=== PATIENT | male | born 1975 | race Caucasian/White ===

== ENCOUNTER 2020-03-27 02:16 | Emergency (ER) | payer OTHER, SELFPAY ==
[2020-03-27 02:31] VITALS: BP 167/103; PULSE 93; RESP 16; TEMP 36.8; O2SAT 100; BMI 40.7
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
[2020-03-27 02:52] VITALS: BP 159/75; PULSE 75; RESP 21; TEMP 36.7; O2SAT 98
== END 2020-03-27 02:55 | disposition home or self-care (01) ==
PROVIDERS: Emergency Provider Emergency Medicine; PCP Family Medicine
DX: S01.111A Laceration without foreign body of right eyelid and periocular area, initial encounter (principal); W22.8XXA Striking against or struck by other objects, initial encounter; Y92.69 Other specified industrial and construction area as the place of occurrence of the external cause; Y99.0 Civilian activity done for income or pay
CPT/HCPCS: 12001; 99282

== ENCOUNTER 2021-07-23 18:44 | Emergency (ER) | payer BC, SELFPAY ==
[2021-07-23 18:45] VITALS: PULSE 88; RESP 16; TEMP 37.1; O2SAT 98; BMI 39.9
--- NOTE | 2021-07-23 18:48 | CT_ITS ---
PROCEDURE INFORMATION: Exam: CT Abdomen And Pelvis With Contrast Exam date and time: 07/23/2021 6:57 PM Age: 45 years old Clinical indication: Abdominal pain; Generalized; Prior surgery; Surgery date: 6+ months; Surgery type: Gallbladder; Additional info: Rlq pain-- for 1 week getting worse- TECHNIQUE: Imaging protocol: Computed tomography of the abdomen and pelvis with contrast. Total images: 343 Radiation optimization: All CT scans at this facility use at least one of these dose optimization techniques: automated exposure control; mA and/or kV adjustment per patient size (includes targeted exams where dose is matched to clinical indication); or iterative reconstruction. Contrast material: ISOVUE; Contrast volume: 75 ml; Contrast route: IV; COMPARISON: No relevant prior studies available. FINDINGS: Lungs: Granulomatous calcifications in the anterior right lung base. Bandlike right basilar airspace disease favoring compressive atelectasis. Heart: Heart size normal. Mediastinal space: The visualized distal esophagus is largely contracted without gross abnormality. Diaphragm: Elevated right hemidiaphragm, age indeterminate. Liver: Normal contour. No mass lesions. No intrahepatic biliary ductal dilatation. Gallbladder and bile ducts: Prior cholecystectomy with no significant dilatation of the common bile duct. Pancreas: Normal. No inflammatory changes or ductal dilation. Spleen: Splenomegaly measuring 14.7 cm maximum dimension. Granulomatous calcification in the spleen. Adrenal glands: Normal. No adrenal mass. Kidneys and ureters: Mild bilateral symmetrical perinephric stranding which is nonspecific and age indeterminate. This may relate to perirenal scarring or edema. Clinical/laboratory correlation is recommended to exclude evidence of medical renal disease. No hydronephrosis or hydroureter. There are 3 nonobstructive right renal stones measuring 1-3 mm in size. No left-sided renal stones. No ureteral stones. Stomach and bowel: The stomach is unremarkable. The small bowel is nondilated with no gross abnormality. No acute colonic abnormalities. Appendix: The appendix is normal in caliber and demonstrates no evidence of appendicitis. Intraperitoneal space: No free fluid or air. Vasculature: No acute process. No abdominal aortic aneurysm. Lymph nodes: No adenopathy. Urinary bladder: Unremarkable as visualized. Reproductive: Borderline mild prostate enlargement. Bones/joints: No acute osseous abnormalities. Moderate posterior disc space narrowing L5-S1. Soft tissues: Unremarkable. IMPRESSION: 1. No definite acute findings. 2. Small nonobstructive right renal stones. No ureteral stones or hydronephrosis. 3. The appendix is normal. No evidence of bowel obstruction, perforation, or abscess. 4. Elevated right hemidiaphragm, age indeterminate, with adjacent compressive atelectasis in the right lung base. 5. Mild bilateral symmetrical perinephric stranding which is nonspecific and age indeterminate. This may relate to perirenal scarring or edema. Clinical/laboratory correlation is recommended to exclude evidence of medical renal disease. 6. Mild splenomegaly. 7. Additional nonemergent findings detailed above.
--- NOTE | 2021-07-23 19:01 | PC.NURSE ---
PT to rad
[2021-07-23 19:14] LABS: Microscopic, Urine URINE MICROSCOPIC (MICROSCOPIC)
--- NOTE | 2021-07-23 19:15 | HMH.EDABDPAI ---
ED Disposition Clinical Impression: Abdominal pain in male Disposition: Home, Self-Care Condition on Discharge: Good Instructions: DI for Acute Abdominal Pain Prescriptions: Hydrocod/Acet 5/325 mg [[place] 5/325mg tablet] 1 tab PO Q6HP PRN #7 tab PRN Reason: Moderate Pain Transmission Status: Received by [facility] Famotidine [Pepcid 20mg Tablet] 20 mg PO DAILY #15 tab Transmission Status: Pending to [facility] Referrals: Moe Mir [Primary Care Provider] - - Critical Care Critical Care Time: No Attestation: On 07/23/21, the high probability of a clinically significant, sudden or life threatening deterioration of the following system(s) required my full and direct attention, intervention and personal management. The time I documented below is in addition to time spent performing reported procedures but includes the following listed in this critical care notation. Medical Decision Making - Medical Records Medical records reviewed: Yes: I reviewed the patient's medical records. - Js Inquiry Pt receiving controlled substance: No Vital Signs: 07/23/21 18:45 Temperature 98.8 F Temperature Source Oral Pulse Rate [Right] 88 Respiratory Rate 16 02 Sat by Pulse Oximetry 98 Oxygen Delivery Method Room Air - Lab Data Lab Results 07/23/21 18:49: WBC 7.3, RBC 5.75, Hgb 18.9 H, Hct 57.4 H, MCV 99.8 H, MCH 32.9 H, MCHC 32.9, RDW 14.3, Plt Count 351, MPV 8.6, Neut % (Auto) 57.4, Lymph % (Auto) 24.7, [place] % (Auto) 13.0 H, Eos % (Auto) 3.0, Baso % (Auto) 1.9, Neut # (Auto) 4.2, Lymph # (Auto) 1.8, [place] # (Auto) 1.0, Eos # (Auto) 0.2, Baso # (Auto) 0.1 07/23/21 18:49: Sodium 136, Potassium 3.6, Chloride 99, Carbon Dioxide 27, Anion Gap 13.6, BUN 8 L, Creatinine 0.90, Estimated Creat Clear 158, Estimated GFR 91, Est GFR ( Amer) 110, Glucose 115 H, Calcium 8.9, Total Bilirubin 1.3, AST 87 H, ALT 116 H, Alkaline Phosphatase 48, Total Protein 6.6, Albumin 3.9, Globulin 2.7, Albumin/Globulin Ratio 1.4 07/23/21 18:49: Troponin I < 0.01, Lipase 82 07/23/21 19:10: Urine Color Yellow, Urine Appearance Clear, Urine pH 7.5, Ur Specific [place] 1.010, Urine Protein Negative, Urine Glucose (UA) Negative, Urine Ketones Negative, Urine Blood Trace-l, Urine Nitrate Negative, Urine Bilirubin Negative, Urine Urobilinogen 2.0, Ur Leukocyte Esterase Negative Result diagrams: 07/23/21 18:49 07/23/21 18:49 Orders (Tests/Meds): ED MEDICATIONS Generic Name Dose Route Start Last Admin Trade Name Freq PRN Reason Stop Dose Admin Lactated Ringer's 1,000 mls @ 999 mls/hr 07/23/21 19:00 07/23/21 19:03 Lactated Ringer's 1000 Ml Bag IV 07/23/21 20:00 999 mls/hr .Q1H1M BAIRON Administration Sodium Chloride 8 ml 07/23/21 18:48 Sodium Chloride 0.9% 10ml Vial IV 08/22/21 18:47 NEEDED PRN dilute pepcid Discontinued Medications Generic Name Dose Route Start Last Admin Trade Name Freq PRN Reason Stop Dose Admin Famotidine 20 mg 07/23/21 18:48 07/23/21 19:03 Famotidine 20mg/2ml Vial IV 07/23/21 18:49 20 mg ONCE ONE Administration Iopamidol 75 ml 07/23/21 19:04 07/23/21 19:05 Iopamidol-370 (76%);100ml Bottle IV 07/23/21 19:05 75 ml ONCE ONE Administration Ketorolac Tromethamine 30 mg 07/23/21 18:48 07/23/21 19:03 Ketorolac 30mg/Ml Vial IV 07/23/21 18:49 30 mg ONCE ONE Administration Ondansetron HCl 4 mg 07/23/21 18:48 07/23/21 19:04 Ondansetron 4mg/2ml Vial IV 07/23/21 18:49 4 mg ONCE ONE Administration Sodium Chloride 10 ml 07/23/21 19:04 07/23/21 19:05 Sodium Chloride 0.9% 10ml Syr (Rad Only) IV 07/23/21 19:05 10 ml ONCE ONE Administration ORDERS Category Date Time Status Troponin I Q3H Lab 07/23/21 22:00 Ordered Troponin I Q3H Lab 07/24/21 01:00 Ordered - CT Data CT Scan: Abdomen, Pelvis Time Received: 19:[address] Reviewed: Yes: I have reviewed the patient's CT results, I have viewed the radiologist's i
[2021-07-23 19:17] LABS: Basophils # 0.1 K/mm3 (0-0.2); Basophils % 1.9 % (0.1-2.0); Eosinophils # 0.2 K/mm3 (0.0-0.4); Hematocrit 57.4 % (42.0-52.0); Lymphocytes # 1.8 K/mm3 (0.7-4.5); Lymphocytes % 24.7 % (10-50); Mean Corpuscular HGB Conc 32.9 g/dL (31.8-35.4); Mean Corpuscular Hemoglobin 32.9 pg (27.0-31.2); Mean Corpuscular Volume 99.8 fl (80-94); Mean Platelet Volume 8.6 fl (7.4-10.4); Neutrophils # 4.2 K/mm3 (1.8-7.8); Neutrophils % 57.4 % (37.0-80.0); Platelet Count 351 K/mm3 (142-424); Red Blood Count 5.75 M/mm3 (4.60-6.20); Red Cell Distribution Width 14.3 % (11.5-17.5); White Blood Count 7.3 K/mm3 (4.8-10.8)
[2021-07-23 19:23] LABS: Hemoglobin 18.9 g/dL (14.1-18.0)
--- NOTE | 2021-07-23 19:25 | PC.NURSE ---
Rechecked pt's condition, report the pain is a little better . Now report pain is 5/10 on [employer]. notified.
[2021-07-23 19:27] LABS: Alanine Aminotransferase 116 U/L (12-78); Albumin Level 3.9 g/dl (3.5-5.0); Albumin/Globulin Ratio 1.4 (1.1-1.8); Alkaline Phosphatase 48 U/L (38-126); Anion Gap 13.6 mEq/L (5-15); Aspartate Amino Transferase 87 U/L (17-59); Bilirubin,Total 1.3 mg/dl (0.2-1.3); Blood Urea Nitrogen 8 mg/dl (9-20); Calcium 8.9 mg/dl (8.4-10.2); Carbon Dioxide 27 mmol/L (22.0-30.0); Chloride 99 mmol/L (98-107); Creatinine Clearance Estimated 158 mL/min (50-200); Estimated Glomerular Filt Rate 91 ml/min (>60); GFR (African American) 110 ML/MIN (>60); Globulin 2.7 g/dL (1.3-3.2); Glucose 115 mg/dl (74-100); Lipase 82 U/L (23-300); Potassium 3.6 mmoL/L (3.5-5.1); Sodium 136 mmol/L (136-145); Total Protein,Serum 6.6 g/dl (6.3-8.2)
[2021-07-23 19:42] LABS: Appearance,Urine CLEAR (Clear); Bilirubin,Urine Negative (Negative); Blood, Urine TRACE-L (Negative); Color,Urine YELLOW (Yellow); Glucose,Urine (UA) Negative (Negative); Ketones,Urine Negative (Negative); Leukocyte Esterase,Urine Negative (Negative); Nitrate,Urine Negative (Negative); PH,Urine 7.5 (5.0-8.5); Protein,Urine Negative (Negative)
[2021-07-23 19:43] LABS: Troponin I < 0.01 ng/ml (0.00-0.034)
--- NOTE | 2021-07-23 19:47 | PC.NURSE ---
updated pt on lab results
[2021-07-23 19:49] LABS: RBC,Urine Occasional #/hpf (0-3); WBC,Urine Occasional #/hpf (0-3)
[2021-07-23 19:53] VITALS: BP 142/78; PULSE 80; RESP 18; TEMP 36.7; O2SAT 98
== END 2021-07-23 20:02 | disposition home or self-care (01) ==
PROVIDERS: Emergency Provider Emergency Medicine; PCP Family Medicine
DX: N20.1 Calculus of ureter (principal)
CPT/HCPCS: 74177; 80053; 81001; 83690; 84484; 85025; 96365; 96375; 99284; J2405; Q9967

== ENCOUNTER 2021-08-25 18:40 | Emergency (ER) | payer BC, SELFPAY ==
[2021-08-25 18:47] VITALS: BP 129/69; PULSE 84; RESP 18; TEMP 36.8; O2SAT 95; BMI 39.9
--- NOTE | 2021-08-25 18:54 | ECG_ITS ---
APPROVED REPORT Exam: Resting ECG HR:85 bpm ECG Measurements Heart Rate 85 AXES GA 160 P 59 QRSd 104 QRS 34 QT 354 T 30 QTc 396 Conclusion SINUS RHYTHM NONSPECIFIC T-WAVE ABNORMALITY BORDERLINE ECG UNCONFIRMED REPORT Electronically signed by : Tico Langston MD 08/26/2021 21:31:04
[2021-08-25 19:00] VITALS: BP 127/56; PULSE 85; RESP 23; O2SAT 95
[2021-08-25 19:09] LABS: Basophils # 0.1 K/mm3 (0-0.2); Basophils % 1.2 % (0.1-2.0); Eosinophils # 0.7 K/mm3 (0.0-0.4); Eosinophils % 6.5 % (0.1-12.0); Hematocrit 49.6 % (42.0-52.0); Hemoglobin 16.7 g/dL (14.1-18.0); Lymphocytes # 1.7 K/mm3 (0.7-4.5); Lymphocytes % 16.7 % (10-50); Mean Corpuscular HGB Conc 33.6 g/dL (31.8-35.4); Mean Corpuscular Hemoglobin 32.3 pg (27.0-31.2); Mean Corpuscular Volume 96.1 fl (80-94); Mean Platelet Volume 8.7 fl (7.4-10.4); Monocytes % 10.2 % (1.7-9.3); Neutrophils # 6.7 K/mm3 (1.8-7.8); Neutrophils % 65.5 % (37.0-80.0); Platelet Count 293 K/mm3 (142-424); Red Blood Count 5.17 M/mm3 (4.60-6.20); Red Cell Distribution Width 15.1 % (11.5-17.5); White Blood Count 10.2 K/mm3 (4.8-10.8)
[2021-08-25 19:12] LABS: Alanine Aminotransferase 94 U/L (12-78); Albumin Level 3.6 g/dl (3.5-5.0); Albumin/Globulin Ratio 1.5 (1.1-1.8); Alkaline Phosphatase 69 U/L (38-126); Amylase 213 U/L (30-110); Anion Gap 8.4 mEq/L (5-15); Aspartate Amino Transferase 62 U/L (17-59); Bilirubin,Total 0.7 mg/dl (0.2-1.3); Blood Urea Nitrogen 14 mg/dl (9-20); Calcium 8.6 mg/dl (8.4-10.2); Carbon Dioxide 31 mmol/L (22.0-30.0); Chloride 101 mmol/L (98-107); Creatinine Clearance Estimated 156 mL/min (50-200); Estimated Glomerular Filt Rate 90 ml/min (>60); GFR (African American) 109 ML/MIN (>60); Globulin 2.4 g/dL (1.3-3.2); Glucose 110 mg/dl (74-100); Lipase 49 U/L (23-300); Potassium 3.4 mmoL/L (3.5-5.1); Sodium 137 mmol/L (136-145)
[2021-08-25 19:24] LABS: Troponin I < 0.01 ng/ml (0.00-0.034)
--- NOTE | 2021-08-25 19:25 | CT_ITS ---
PROCEDURE INFORMATION: Exam: CT Abdomen And Pelvis Without Contrast Exam date and time: 08/25/2021 7:33 PM Age: 46 years old Clinical indication: Abdominal pain; Epigastric; Prior surgery; Surgery date: 6+ months; Surgery type: Gb; Additional info: Abd pain TECHNIQUE: Imaging protocol: Computed tomography of the abdomen and pelvis without contrast. Radiation optimization: All CT scans at this facility use at least one of these dose optimization techniques: automated exposure control; mA and/or kV adjustment per patient size (includes targeted exams where dose is matched to clinical indication); or iterative reconstruction. COMPARISON: CT ABDOMEN PELVIS W CON 07/23/2021 6:57 PM FINDINGS: Lungs: Elevation of the right hemidiaphragm with atelectasis at the right lung base which is stable from prior exam. Liver: Parenchymal enhancement is not evaluated without contrast. No hepatomegaly. Gallbladder and bile ducts: Status post cholecystectomy. Pancreas: Parenchymal enhancement is not evaluated without contrast. No ductal dilation. Spleen: There are multiple splenic calcifications likely on the basis of prior granulomatous exposure. Adrenal glands: No mass. Kidneys and ureters: Punctate nonobstructing renal calculi without hydronephrosis. Stomach and bowel: Moderate to large stool burden within the colon. No bowel obstruction. Appendix: No evidence of appendicitis. Intraperitoneal space: No free air. No significant fluid collection. Vasculature: Limited evaluation without contrast. No abdominal aortic aneurysm. Lymph nodes: No enlarged lymph nodes. Urinary bladder: No acute abnormality. Reproductive: No acute abnormality. Bones/joints: No acute fracture. Soft tissues: Limited evaluation without contrast. No significant soft tissue swelling. IMPRESSION: 1. Elevation of the right hemidiaphragm with atelectasis at the right lung base which is stable from prior exam. 2. There are multiple splenic calcifications likely on the basis of prior granulomatous exposure. 3. Punctate nonobstructing renal calculi without hydronephrosis. 4. Moderate to large stool burden within the colon.
[2021-08-25 19:30] VITALS: BP 117/53; PULSE 90; RESP 21; O2SAT 97
--- NOTE | 2021-08-25 19:55 | HMH.EDNVD ---
ED Disposition Clinical Impression: Sphincter of Oddi dysfunction Disposition: Home, Self-Care Condition on Discharge: Good Instructions: DI for Acute Abdominal Pain Additional Instructions: use meds and see pcp and gi Prescriptions: Dicyclomine HCl [Bentyl 10mg capsule] 10 mg PO TID #30 cap Transmission Status: Pending to [id number] Referrals: Moe Mir [Primary Care Provider] - - Critical Care Critical Care Time: No Attestation: On 08/25/21, the high probability of a clinically significant, sudden or life threatening deterioration of the following system(s) required my full and direct attention, intervention and personal management. The time I documented below is in addition to time spent performing reported procedures but includes the following listed in this critical care notation. Medical Decision Making - Medical Records Medical records reviewed: Yes: I reviewed the patient's medical records. - Js Inquiry Pt receiving controlled substance: No Vital Signs: 08/25/21 18:47 08/25/21 19:00 08/25/21 19:30 Temperature 98.3 F Temperature Source Oral Pulse Rate 85 90 Pulse Rate [Right Radial] 84 Respiratory Rate 18 23 21 Blood Pressure 127/56 L 117/53 L Blood Pressure [Right Arm] 129/69 Blood Pressure Mean 79 74 Blood Pressure Mean [Right Arm] 89 Blood Pressure Source [Right Arm] Automatic Cuff Blood Pressure Position [Right Arm] Sitting 02 Sat by Pulse Oximetry 95 95 97 Oxygen Delivery Method Room Air 08/25/21 20:00 Temperature Temperature Source Pulse Rate 90 Pulse Rate [Right Radial] Respiratory Rate 20 Blood Pressure 139/80 Blood Pressure [Right Arm] Blood Pressure Mean 94 Blood Pressure Mean [Right Arm] Blood Pressure Source [Right Arm] Blood Pressure Position [Right Arm] 02 Sat by Pulse Oximetry 98 Oxygen Delivery Method - Lab Data Lab results reviewed: Yes: I reviewed the patient's lab results. Lab Results 08/25/21 18:45: WBC 10.2, RBC 5.17, Hgb 16.7, Hct 49.6, MCV 96.1 H, MCH 32.3 H, MCHC 33.6, RDW 15.1, Plt Count 293, MPV 8.7, Neut % (Auto) 65.5, Lymph % (Auto) 16.7, [place] % (Auto) 10.2 H, Eos % (Auto) 6.5, Baso % (Auto) 1.2, Neut # (Auto) 6.7, Lymph # (Auto) 1.7, [place] # (Auto) 1.0, Eos # (Auto) 0.7 H, Baso # (Auto) 0.1 08/25/21 18:45: Sodium 137, Potassium 3.4 L, Chloride 101, Carbon Dioxide 31 H, Anion Gap 8.4, BUN 14, Creatinine 0.90, Estimated Creat Clear 156, Estimated GFR 90, Est GFR ( Amer) 109, Glucose 110 H, Calcium 8.6, Total Bilirubin 0.7, AST 62 H, ALT 94 H, Alkaline Phosphatase 69, Troponin I < 0.01, Total Protein 6.0 L, Albumin 3.6, Globulin 2.4, Albumin/Globulin Ratio 1.5, Amylase 213 H, Lipase 49 Result diagrams: 08/25/21 18:45 08/25/21 18:45 Orders (Tests/Meds): ED MEDICATIONS Generic Name Dose Route Start Last Admin Trade Name Freq PRN Reason Stop Dose Admin Sodium Chloride 8 ml 08/25/21 18:57 Sodium Chloride 0.9% 10ml Vial IV 09/24/21 18:56 NEEDED PRN dilute pepcid Sodium Chloride 10 ml 08/25/21 18:57 Sodium Chloride 0.9% 10ml Flush Syringe IV 09/24/21 18:56 NEEDED PRN Maintain IV Site Discontinued Medications Generic Name Dose Route Start Last Admin Trade Name Freq PRN Reason Stop Dose Admin Famotidine 20 mg 08/25/21 18:57 08/25/21 19:02 Famotidine 20mg/2ml Vial IV 08/25/21 18:58 20 mg ONCE ONE Administration Metoclopramide HCl 10 mg 08/25/21 18:57 08/25/21 19:02 Metoclopramide Hcl 10mg/2ml Vial IVP 08/25/21 18:58 10 mg ONCE ONE Administration ORDERS Category Date Time Status Troponin I Q3H Lab 08/25/21 22:00 Ordered Troponin I Q3H Lab 08/26/21 01:00 Ordered - CT Data CT Scan: Abdomen, Pelvis Time Received: 20:[address] Reviewed: Yes: I have viewed the radiologist's interpretation Preliminary Findings: Normal/NAD - ECG Data Tracing #1 Normal Sinus Rhythm: Yes Ischemic changes: non-specific ST-T wave
[2021-08-25 20:00] VITALS: BP 139/80; PULSE 90; RESP 20; O2SAT 98
[2021-08-25 20:30] VITALS: BP 139/80; PULSE 91; RESP 18; TEMP 36.8; O2SAT 98
== END 2021-08-25 20:33 | disposition home or self-care (01) ==
PROVIDERS: Emergency Provider Emergency Medicine; PCP Family Medicine
DX: K92.89 Other specified diseases of the digestive system; Z88.8 Allergy status to other drugs, medicaments and biological substances
CPT/HCPCS: 74176; 80053; 82150; 83690; 84484; 85025; 93005; 96374; 96375; 99284

== ENCOUNTER 2021-10-24 19:25 | Emergency (ER) | payer BC, SELFPAY ==
[2021-10-24 19:31] VITALS: BP 145/81; PULSE 91; RESP 16; TEMP 36.7; O2SAT 100; BMI 39.9
[2021-10-24 20:00] VITALS: BP 136/84; PULSE 94; O2SAT 95
[2021-10-24 20:34] LABS: Chloride 101 mmol/L (98-107); Potassium 3.2 mmoL/L (3.5-5.1); Sodium 139 mmol/L (136-145)
[2021-10-24 20:36] LABS: Alanine Aminotransferase 85 U/L (12-78); Aspartate Amino Transferase 69 U/L (17-59); Blood Urea Nitrogen 6 mg/dl (9-20); Creatinine Clearance Estimated 156 mL/min (50-200); Estimated Glomerular Filt Rate 90 ml/min (>60); GFR (African American) 109 ML/MIN (>60)
[2021-10-24 20:37] LABS: Albumin Level 4.3 g/dl (3.5-5.0); Albumin/Globulin Ratio 1.8 (1.1-1.8); Alkaline Phosphatase 56 U/L (38-126); Anion Gap 9.2 mEq/L (5-15); Bilirubin,Total 1.4 mg/dl (0.2-1.3); Calcium 9.1 mg/dl (8.4-10.2); Carbon Dioxide 32 mmol/L (22.0-30.0); Globulin 2.4 g/dL (1.3-3.2); Glucose 115 mg/dl (74-100); Lactic Acid 1.5 mmol/L (0.7-2.1); Lipase 80 U/L (23-300); Total Protein,Serum 6.7 g/dl (6.3-8.2)
--- NOTE | 2021-10-24 20:46 | ECG_ITS ---
APPROVED REPORT Exam: Resting ECG HR:95 bpm ECG Measurements Heart Rate 95 AXES [place] 177 P 53 QRSd 98 QRS 14 QT 336 T -81 QTc 389 Conclusion SINUS RHYTHM NONSPECIFIC ST & T-WAVE ABNORMALITY seen on prior ecg ABNORMAL ECG UNCONFIRMED REPORT Electronically signed by : Tico Langston MD 10/25/2021 13:51:29
--- NOTE | 2021-10-24 20:48 | HMH.EDGENADL ---
ED Disposition Clinical Impression: Abdominal pain Qualifiers: Abdominal location: epigastric Qualified Code(s): R10.13 - Epigastric pain Disposition: Home, Self-Care Condition on Discharge: Good Instructions: DI for Acute Abdominal Pain Additional Instructions: Take medications as prescribed. Call gastroenterology to set up an appointment for potential ERCP and EGD. Prescriptions: Esomeprazole Magnesium 20 mg PO DAILY #30 cap Transmission Status: Received by [id number] Referrals: Moe Mir [Primary Care Provider] - - Critical Care Critical Care Time: No Attestation: On 10/24/21, the high probability of a clinically significant, sudden or life threatening deterioration of the following system(s) required my full and direct attention, intervention and personal management. The time I documented below is in addition to time spent performing reported procedures but includes the following listed in this critical care notation. Medical Decision Making - Js Inquiry Pt receiving controlled substance: No Vital Signs: 10/24/21 19:31 10/24/21 20:00 10/24/21 21:52 Temperature 98.1 F 98.1 F Temperature Source Oral Oral Pulse Rate 94 H 89 Pulse Rate [Left Radial] 91 H Respiratory Rate 16 16 Blood Pressure 136/84 136/84 Blood Pressure [Right Arm] 145/81 H Blood Pressure Mean [Right Arm] 102 Blood Pressure Source Automatic Cuff Blood Pressure Source [Right Arm] Automatic Cuff Blood Pressure Position Sitting Blood Pressure Position [Right Arm] Sitting 02 Sat by Pulse Oximetry 100 95 Oxygen Delivery Method Room Air Room Air Room Air - Lab Data Lab Results 10/24/21 20:14: WBC 12.0 H, RBC 5.75, Hgb 19.2 H, Hct 58.1 H, MCV 101.1 H, MCH 33.6 H, MCHC 33.3, RDW 14.6, Plt Count 308, MPV 8.6, Neut % (Auto) 78.0, Lymph % (Auto) 12.6, [place] % (Auto) 7.4, Eos % (Auto) 0.9, Baso % (Auto) 1.1, Neut # (Auto) 9.4 H, Lymph # (Auto) 1.5, [place] # (Auto) 0.9, Eos # (Auto) 0.1, Baso # (Auto) 0.1 10/24/21 20:14: Sodium 139, Potassium 3.2 L, Chloride 101, Carbon Dioxide 32 H, Anion Gap 9.2, BUN 6 L, Creatinine 0.90, Estimated Creat Clear 156, Estimated GFR 90, Est GFR ( Amer) 109, Glucose 115 H, Calcium 9.1, Total Bilirubin 1.4 H, AST 69 H, ALT 85 H, Alkaline Phosphatase 56, Troponin I < 0.01, Total Protein 6.7, Albumin 4.3, Globulin 2.4, Albumin/Globulin Ratio 1.8, Lipase 80 10/24/21 20:14: Lactate 1.5 Result diagrams: 10/24/21 20:14 10/24/21 20:14 Orders (Tests/Meds): ED MEDICATIONS Discontinued Medications Generic Name Dose Route Start Last Admin Trade Name Freq PRN Reason Stop Dose Admin Lactated Ringer's 1,000 mls @ 999 mls/hr 10/24/21 20:30 10/24/21 20:24 Lactated Ringer's 1000 Ml Bag IV 10/24/21 21:30 999 mls/hr .Q1H1M BAIRON Administration Ketorolac Tromethamine 15 mg 10/24/21 20:20 10/24/21 20:24 Ketorolac 30mg/Ml Vial IV 10/24/21 20:21 15 mg ONCE ONE Administration Pantoprazole Sodium 40 mg 10/24/21 20:20 10/24/21 20:24 Pantoprazole 40mg Vial IV 10/24/21 20:21 40 mg ONCE ONE Administration Sodium Chloride 10 ml 10/24/21 20:20 10/24/21 20:24 Sodium Chloride 0.9% 10ml Vial IV 11/23/21 20:19 10 ml NEEDED PRN Administration dilute protonix Sodium Chloride 10 ml 10/24/21 20:20 Sodium Chloride 0.9% 10ml Flush Syringe IV 10/25/21 08:21 NEEDED PRN Maintain IV Site - ECG Data Tracing #1 Normal sinus rhythm [address] or T wave changes concerning for acute ischemia. [place], QRS, QT intervals within normal limits. Medical Decision Narrative: This is a 46-year-old male with history of sphincter of Oddi dysfunction, chronic epigastric pain, status post cholecystitis who is presenting with epigastric pain. Patient states that he has been unable to take any of his medications secondary to losing them and a separation with his . On arrival, patient hemodynamically stable, alert, oriented, movin
[2021-10-24 20:50] LABS: Troponin I < 0.01 ng/ml (0.00-0.034)
[2021-10-24 21:02] LABS: Basophils # 0.1 K/mm3 (0-0.2); Basophils % 1.1 % (0.1-2.0); Eosinophils # 0.1 K/mm3 (0.0-0.4); Eosinophils % 0.9 % (0.1-12.0); Hematocrit 58.1 % (42.0-52.0); Lymphocytes # 1.5 K/mm3 (0.7-4.5); Lymphocytes % 12.6 % (10-50); Mean Corpuscular HGB Conc 33.3 g/dL (31.8-35.4); Mean Corpuscular Hemoglobin 33.6 pg (27.0-31.2); Mean Corpuscular Volume 101.1 fl (80-94); Mean Platelet Volume 8.6 fl (7.4-10.4); Monocytes # 0.9 K/mm3 (0.1-1.0); Monocytes % 7.4 % (1.7-9.3); Neutrophils # 9.4 K/mm3 (1.8-7.8); Platelet Count 308 K/mm3 (142-424); Red Blood Count 5.75 M/mm3 (4.60-6.20); Red Cell Distribution Width 14.6 % (11.5-17.5)
[2021-10-24 21:04] LABS: Hemoglobin 19.2 g/dL (14.1-18.0)
[2021-10-24 21:52] VITALS: BP 136/84; PULSE 89; RESP 16; TEMP 36.7; O2SAT 99
== END 2021-10-24 22:00 | disposition home or self-care (01) ==
PROVIDERS: Emergency Provider Emergency Medicine; PCP Family Medicine
DX: R10.13 Epigastric pain (principal)
CPT/HCPCS: 80053; 83605; 83690; 84484; 85025; 93005; 96361; 96374; 96375; 99284

== ENCOUNTER 2021-10-27 19:58 | Emergency (ER) | payer OTHER, BC, SELFPAY ==
[2021-10-27 19:56] VITALS: BP 180/92; PULSE 108; RESP 18; TEMP 36.8; O2SAT 99
[2021-10-27 20:05] VITALS: BMI 40.7
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
[2021-10-27 20:20] LABS: Microscopic, Urine URINE MICROSCOPIC (MICROSCOPIC)
[2021-10-27 20:22] LABS: Appearance,Urine CLEAR (Clear); Bilirubin,Urine Negative (Negative); Blood, Urine Negative (Negative); Color,Urine YELLOW (Yellow); Glucose,Urine (UA) Negative (Negative); Ketones,Urine Negative (Negative); Leukocyte Esterase,Urine Negative (Negative); Nitrate,Urine Negative (Negative); Protein,Urine Negative (Negative)
[2021-10-27 20:53] LABS: Squamous Epithelial Cell,Urine Occasional #/hpf (0-5); WBC,Urine Occasional #/hpf (0-3)
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
[2021-10-27 21:34] LABS: Basophils # 0.1 K/mm3 (0-0.2); Eosinophils # 0.7 K/mm3 (0.0-0.4)
--- NOTE | 2021-10-27 21:34 | PC.NURSE ---
Cervical spine CT has reported, notified and he reviewed it. Stated OK to remove C-Collar.
[2021-10-27 21:38] LABS: Alanine Aminotransferase 75 U/L (12-78); Albumin Level 3.8 g/dl (3.5-5.0); Albumin/Globulin Ratio 1.7 (1.1-1.8); Alkaline Phosphatase 49 U/L (38-126); Anion Gap 6.9 mEq/L (5-15); Aspartate Amino Transferase 64 U/L (17-59); Bilirubin,Total 0.7 mg/dl (0.2-1.3); Blood Urea Nitrogen 5 mg/dl (9-20); Carbon Dioxide 29 mmol/L (22.0-30.0); Chloride 105 mmol/L (98-107); Creatinine Clearance Estimated 169 mL/min (50-200); Estimated Glomerular Filt Rate 90 ml/min (>60); GFR (African American) 109 ML/MIN (>60); Globulin 2.3 g/dL (1.3-3.2); Glucose 73 mg/dl (74-100); Lipase 97 U/L (23-300); Sodium 138 mmol/L (136-145); Total Protein,Serum 6.1 g/dl (6.3-8.2)
[2021-10-27 21:39] LABS: Basophils % 1.1 % (0.1-2.0); Eosinophils % 7.1 % (0.1-12.0); Lymphocytes # 1.8 K/mm3 (0.7-4.5); Lymphocytes % 20.1 % (10-50); Mean Corpuscular HGB Conc 33.3 g/dL (31.8-35.4); Mean Corpuscular Hemoglobin 33.3 pg (27.0-31.2); Mean Platelet Volume 9.2 fl (7.4-10.4); Monocytes # 1.4 K/mm3 (0.1-1.0); Monocytes % 15.9 % (1.7-9.3); Neutrophils # 5.1 K/mm3 (1.8-7.8); Neutrophils % 55.9 % (37.0-80.0); Platelet Count 296 K/mm3 (142-424); Red Blood Count 5.47 M/mm3 (4.60-6.20); Red Cell Distribution Width 14.6 % (11.5-17.5); White Blood Count 9.1 K/mm3 (4.8-10.8)
[2021-10-27 21:41] LABS: Hematocrit 54.7 % (42.0-52.0); Hemoglobin 18.2 g/dL (14.1-18.0)
[2021-10-27 21:42] LABS: Potassium 2.9 mmoL/L (3.5-5.1)
[2021-10-27 22:33] VITALS: BP 175/90; PULSE 98; RESP 18; TEMP 36.8; O2SAT 99
== END 2021-10-27 22:37 | disposition home or self-care (01) ==
PROVIDERS: Emergency Provider Student in an Organized Health Care Education/Training Program; PCP Family Medicine
DX: M25.512 Pain in left shoulder (principal); M25.562 Pain in left knee; M43.6 Torticollis; Z88.8 Allergy status to other drugs, medicaments and biological substances; V89.2XXA Person injured in unspecified motor-vehicle accident, traffic, initial encounter
CPT/HCPCS: 70450; 71045; 71275; 72125; 72128; 72131; 72170; 73030; 73562; 74174; 80053; 81001; 83690; 85025; 99285; Q9967

== ENCOUNTER 2021-11-28 17:09 | Emergency (ER) | payer BC, SELFPAY ==
[2021-11-28] VITALS (7 sets, daily range): BP systolic 105–186; BP diastolic 54–117; PULSE 78–107; RESP 16–18; TEMP 36.7; O2SAT 90–97; BMI 39.9
--- NOTE | 2021-11-28 17:47 | HMH.EDGENADL ---
Discharge Plan Disposition Patient Disposition: Home, Self-Care Condition: Good Prescriptions Prescriptions: New ondansetron 4 mg tablet,disintegrating 4 mg PO Q8H 3 Days Qty: 9 0RF No Action methocarbamol 750 MG tablet 750 mg PO Q6 PRN (Reason: Muscle Spasm) Qty: 30 0RF famotidine 20 MG tablet 20 mg PO DAILY dicyclomine 10 MG capsule 10 mg PO TID esomeprazole magnesium 20 MG capsule,delayed release(DR/EC) 20 mg PO DAILY Qty: 30 2RF amlodipine 5 mg tablet 5 mg PO DAILY Latuda 80 mg tablet 80 mg PO DAILY Referrals Follow up/Referrals: Moe Mir [Primary Care Provider] - See instructions Activity Restrictions/Add. Instructions Additional Instructions/Restrictions: You have been evaluated for upper abdominal pain, diagnosed with pancreatitis. Please follow bland diet, bananas, rice, applesauce, toast. Take Bentyl as needed for cramps. Zofran for nausea. Follow-up with your primary care doctor in 1 to 2 days for symptom recheck. Return to the emergency department at once for any new or worsening symptoms. Clinical Impressions Clinical Impression: Pancreatitis, acute Discharge ED Provider: Mary Hsu Adult HPI General Chief complaint: Abdominal Pain Stated complaint: vomiting, poss reaction to shellfish Time Seen by Provider: 11/28/21 17:15 Mode of Arrival: Ambulatory Source of Information: Patient Limitations: No Limitations Description of Symptoms (Recalled from ER Triage Doc. by RN): pt reports upper abd pain that began soon after eating oysters. Pt reports he is allergic to some shellfish but able to eat others. Pt reports hadn't had oysters in awhile until lastnight. Pt reports began vomitting todya and abd pain is not improving. History of Present Illness HPI narrative: 46-year-old male presenting to the emergency department with abdominal pain, nausea, vomiting. Symptoms started this morning. He ate oysters late last night, around 2 AM. Says he has a sensitivity to shellfish, also has sphincter of Oddi dysfunction. Today, the pain was located in the right upper quadrant, dull and cramping. Associated nausea and vomiting. He tried taking his prescribed medications including a PPI and muscle relaxer. Has had symptoms like this, usually after eating shellfish. Denies any fevers, chills, nausea, vomiting. No changes in bladder or bowel habits. Related Data Home Medications Medication Instructions Recorded Confirmed dicyclomine 10 mg capsule 10 mg PO TID ABDOMINAL PAIN 10/24/21 10/24/21 famotidine 20 mg tablet 20 mg PO DAILY ABDOMINAL PAIN 10/24/21 10/24/21 amlodipine 5 mg tablet 5 mg PO DAILY Hypertension 11/28/21 11/28/21 lurasidone 80 mg tablet (Latuda) 80 mg PO DAILY mood 11/28/21 11/28/21 Previous Rx's Medication Instructions Recorded esomeprazole magnesium 20 mg 20 mg PO DAILY #30 caps 10/24/21 capsule,delayed release methocarbamol 750 mg tablet 750 mg PO Q6 PRN Muscle Spasm #30 10/27/21 tabs ondansetron 4 mg disintegrating 4 mg PO Q8H 3 days #9 tabs 11/28/21 tablet Allergies Allergy/AdvReac Type Severity Reaction Status Date / Time Iodine and Iodide Containing Allergy Verified 11/28/21 17:41 Produc metronidazole [From Flagyl] Allergy Verified 07/23/21 19:01 [facility] Medical History (Updated 11/28/21 @ 19:41 by Mary Hsu DO) Hypertension Social History Smoking Status: Never smoker alcohol intake: never current occupational status: employed Travel in the last 8 weeks: None ROS Obtained: Yes All systems reviewed & no additional complaints except as documented Constitutional Constitutional: Denies chills, Denies fever(s) and Denies headache(s) Eyes Eyes: Denies itchy eyes ENT Ears, Nose, Mouth, and Throat: Denies dizziness, Denies headache(s), Denies throat swelling and Denies tongue swelling Cardiovascular Cardiovascular: Denies chest pain, Denies dyspnea and Denies palpitations
[2021-11-28 17:52] LABS: Basophils # 0.1 K/mm3 (0-0.2); Basophils % 1.1 % (0.1-2.0); Eosinophils # 0.5 K/mm3 (0.0-0.4); Eosinophils % 5.6 % (0.1-12.0); Lymphocytes # 1.5 K/mm3 (0.7-4.5); Lymphocytes % 15.8 % (10-50); Mean Corpuscular Hemoglobin 32.6 pg (27.0-31.2); Mean Platelet Volume 8.4 fl (7.4-10.4); Monocytes # 0.8 K/mm3 (0.1-1.0); Monocytes % 8.4 % (1.7-9.3); Neutrophils # 6.7 K/mm3 (1.8-7.8); Platelet Count 317 K/mm3 (142-424); Red Blood Count 6.06 M/mm3 (4.60-6.20); Red Cell Distribution Width 13.8 % (11.5-17.5); White Blood Count 9.7 K/mm3 (4.8-10.8)
--- NOTE | 2021-11-28 17:54 | PC.NURSE ---
LAB CALLED WITH [facility] DR BENSON AWARE
[2021-11-28 18:03] LABS: Alanine Aminotransferase 65 U/L (12-78); Albumin Level 3.6 g/dl (3.5-5.0); Albumin/Globulin Ratio 1.6 (1.1-1.8); Alkaline Phosphatase 51 U/L (38-126); Anion Gap 9.4 mEq/L (5-15); Aspartate Amino Transferase 55 U/L (17-59); Bilirubin,Total 0.7 mg/dl (0.2-1.3); Blood Urea Nitrogen 10 mg/dl (9-20); Calcium 7.9 mg/dl (8.4-10.2); Carbon Dioxide 28 mmol/L (22.0-30.0); Chloride 104 mmol/L (98-107); Creatinine Clearance Estimated 156 mL/min (50-200); Estimated Glomerular Filt Rate 90 ml/min (>60); GFR (African American) 109 ML/MIN (>60); Globulin 2.3 g/dL (1.3-3.2); Glucose 83 mg/dl (74-100); Hemoglobin 19.9 g/dL (14.1-18.0); Potassium 3.4 mmoL/L (3.5-5.1); Sodium 138 mmol/L (136-145); Total Protein,Serum 5.9 g/dl (6.3-8.2)
[2021-11-28 18:04] LABS: Hematocrit 61.8 % (42.0-52.0)
[2021-11-28 18:16] LABS: Lipase 2216 U/L (23-300)
--- NOTE | 2021-11-28 19:19 | CT_ITS ---
PROCEDURE INFORMATION: Exam: CT Abdomen And Pelvis Without Contrast Exam date and time: 11/28/2021 7:24 PM Age: 46 years old Clinical indication: Abdominal pain; Generalized; Additional info: Abdominal pain, elevated lipase TECHNIQUE: Imaging protocol: Computed tomography of the abdomen and pelvis without contrast. Radiation optimization: All CT scans at this facility use at least one of these dose optimization techniques: automated exposure control; mA and/or kV adjustment per patient size (includes targeted exams where dose is matched to clinical indication); or iterative reconstruction. COMPARISON: CT ABDOMEN PELVIS WO CON 08/25/2021 7:33 PM FINDINGS: Lungs: Elevated right hemidiaphragm with mild adjacent chronic compressive atelectasis which is unchanged. Chronic granulomatous calcifications in the anterior right lung base again noted. Heart: Heart size normal. Mediastinal space: The visualized distal esophagus is largely contracted without gross abnormality. Liver: Normal contour. No mass lesions. No intrahepatic biliary ductal dilatation. Gallbladder and bile ducts: Prior cholecystectomy with no significant dilatation of the common bile duct. Pancreas: No evidence of pancreatitis. No pancreatic ductal dilatation or mass. Mild generalized fatty infiltration of the pancreas. Spleen: Mild splenomegaly measuring 13.8 cm is not significantly changed Adrenal glands: Normal. No adrenal mass. Kidneys and ureters: Mild bilateral symmetrical perinephric stranding, nonspecific. This is unchanged and may relate to chronic perirenal scarring. No hydronephrosis or hydroureter. 4 mm nonobstructive right renal stone is unchanged in position. No ureteral stones. Stomach and bowel: The stomach is unremarkable. The small bowel is nondilated with no gross abnormality. No acute colonic abnormalities. Appendix: The appendix is normal in caliber and demonstrates no evidence of appendicitis. Intraperitoneal space: No free fluid or air. Vasculature: No acute process. No abdominal aortic aneurysm. Lymph nodes: No adenopathy. Urinary bladder: Unremarkable as visualized. Reproductive: Mildly enlarged prostate. Bones/joints: No acute osseous abnormalities. Soft tissues: No acute soft tissue abnormalities. Mild chronic subcutaneous granulomatous changes in both flanks unchanged. IMPRESSION: 1. No evidence of pancreatitis. There is minor fatty infiltration of the pancreas. No ductal dilatation. 2. No acute process. 3. Mild splenomegaly. 4. There is a 4 mm nonobstructive right renal stone. No ureteral stones or hydronephrosis. 5. Additional nonemergent findings detailed above.
== END 2021-11-28 20:26 | disposition home or self-care (01) ==
PROVIDERS: Emergency Provider Emergency Medicine; PCP Family Medicine
DX: K85.90 Acute pancreatitis without necrosis or infection, unspecified (principal); Z79.899 Other long term (current) drug therapy; Z88.8 Allergy status to other drugs, medicaments and biological substances; I10 Essential (primary) hypertension
CPT/HCPCS: 74176; 80053; 83690; 85025; 96374; 96375; 99284; J2405

== ENCOUNTER 2022-10-07 08:13 | Emergency (ER) | payer BC, SELFPAY ==
--- NOTE | 2022-10-07 08:20 | XR_ITS ---
FINAL REPORT CLINICAL HISTORY: pain when stepping up into truck, midline COMPARISON: None FINDINGS: 2 views of the right knee were obtained. There is no prior exam for comparison. There is no acute fracture or dislocation. The joint space is preserved. Soft tissues are normal. IMPRESSION: No acute osseous abnormality of the right knee. Reviewed, Interpreted and Dictated by Neida Good MD Transcribed by Thalia Cunningham Authenticated and [facility]
--- NOTE | 2022-10-07 08:21 | HMH.EDGENADL ---
Discharge Plan Disposition Patient Disposition: Home, Self-Care Condition: Fair Prescriptions Prescriptions: New ketorolac 10 mg tablet 10 mg PO Q8H PRN (Reason: knee pain and swelling) Qty: 15 0RF No Action famotidine 20 MG tablet 20 mg PO DAILY amlodipine 5 mg tablet 5 mg PO DAILY lurasidone [Latuda] 80 mg tablet 80 mg PO DAILY Referrals Follow up/Referrals: Emile Fisher DO [Staff Physician] - See instructions Moe Mir [Primary Care Provider] - See instructions Activity Restrictions/Add. Instructions Additional Instructions/Restrictions: At this time is felt you are safe to be discharged home. If new or worsening symptoms please do not hesitate to return the emergency department. Please call and schedule an appointment with orthopedics as soon as you are able. Clinical Impressions Clinical Impression: Acute knee pain Discharge ED Provider: Mayito Werner General Adult HPI General Chief complaint: PAIN Stated complaint: AO7/15@work pain in Rt leg Time Seen by Provider: 10/07/22 08:16 History of Present Illness HPI narrative: Patient is a 47-year-old male with no pertinent past medical history who presents emergency department for evaluation of right knee pain. History is obtained by patient at bedside. 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 Since then patient has progressive worsening pain and limited ability to bear weight. Denies other traumatic injuries. No other acute complaints at this time. Related Data Home Medications Medication Instructions Recorded Confirmed famotidine 20 mg tablet 20 mg PO DAILY ABDOMINAL PAIN 10/24/21 10/07/22 amlodipine 5 mg tablet 5 mg PO DAILY Hypertension 11/28/21 10/07/22 lurasidone 80 mg tablet (Latuda) 80 mg PO DAILY mood 11/28/21 10/07/22 Previous Rx's Medication Instructions Recorded ketorolac 10 mg tablet 10 mg PO Q8H PRN knee pain and 10/07/22 swelling #15 tabs Allergies Allergy/AdvReac Type Severity Reaction Status Date / Time Iodine and Iodide Containing Allergy Verified 11/28/21 17:41 Produc metronidazole [From Flagyl] Allergy Verified 07/23/21 19:01 [facility] Disclaimer: The information contained in this section may have been updated after the patient was seen, as this information can be updated by other users. Medical History (Updated 10/07/22 @ 08:32 by Mayito Werner MD) Hypertension Social History (Updated 11/28/21 @ 20:16 by Mary Hsu DO) Smoking Status: Never smoker alcohol intake: never current occupational status: employed Travel in the last 8 weeks: None ROS Obtained: Yes Systems reviewed as appropriate & no additional complaints except as documented Physical Exam General General appearance: alert and in no apparent distress Head Head exam: atraumatic and normocephalic Eye Eye exam: Present PERRL ENT ENT exam: Present mucous membranes moist Neck Neck exam: Present normal inspection Chest Chest inspection: Present normal inspection and symmetric chest wall rise Respiratory Respiratory exam: Absent respiratory distress Cardiovascular Cardiovascular exam: Present regular rate and normal rhythm Abdominal Exam Abdominal exam: Present soft Extremities Exam Extremities exam: Present normal inspection and other (Extensor mechanism at the knee is intact right lower extremity. 5 out of 5 strength of the hip, knee. Palpable dorsal pedal pulse on the right. ) Neurological Exam Neurological exam: Present alert Psychiatric Psychiatric exam: Present normal affect Skin Skin exam: Present warm and dry Medical Decision Making Sj Inquiry Pt receiving controlled substance: No Vital Signs: 10/07/22 08:22 Temperature 98.3 F Temperature Source Oral Pulse Rate [Left Radial] 81 Respiratory Rate 18 Blood Pressure [Right Arm] 137/61 Blood Pressure Mean [Right Arm] 86
[2022-10-07 08:22] VITALS: BP 137/61; PULSE 81; RESP 18; TEMP 36.8; O2SAT 98; BMI 39.9
--- NOTE | 2022-10-07 08:32 | PC.NURSE ---
pt returned from radiology
[2022-10-07 09:01] VITALS: BP 134/69; PULSE 86; RESP 20; O2SAT 95
[2022-10-07 09:46] VITALS: BP 133/78; PULSE 84; RESP 20; TEMP 36.8; O2SAT 99
== END 2022-10-07 09:47 | disposition home or self-care (01) ==
PROVIDERS: Emergency Provider Emergency Medicine; PCP Family Medicine
DX: M25.561 Pain in right knee (principal); X50.0XXA Overexertion from strenuous movement or load, initial encounter
CPT/HCPCS: 73560; 96372; 99283

== ENCOUNTER 2024-03-18 10:27 | Emergency (ER) | payer BC, SELFPAY ==
[2024-03-18 10:28] VITALS: BP 128/66; PULSE 83; RESP 20; TEMP 36.8; O2SAT 95; BMI 39.2
[2024-03-18 10:39] VITALS: PULSE 84; O2SAT 96
[2024-03-18 10:45] VITALS: PULSE 82; O2SAT 95
--- NOTE | 2024-03-18 10:57 | PC.NURSE ---
DR GUTHRIE AT BEDSIDE
--- NOTE | 2024-03-18 10:58 | ECG_ITS ---
APPROVED REPORT Exam: Resting ECG HR:82 bpm ECG Measurements Heart Rate 82 AXES MT 168 P 65 QRSd 89 QRS 20 QT 363 T 17 QTc 402 Conclusion SINUS RHYTHM NORMAL ECG Electronically signed by : JENNIFER GUTHRIE, 03/20/2024 15:12:34
--- NOTE | 2024-03-18 11:01 | PC.NURSE ---
Pt. sitting on the side of the bed at this time. no needs at this time. Call light in reach
--- NOTE | 2024-03-18 11:02 | XR_ITS ---
FINAL REPORT TECHNIQUE: Chest PA & Lateral CLINICAL HISTORY: recent R thoracostomy, new fever and Pain at site COMPARISON: 10/27/2021 FINDINGS: 2 views of the chest were performed. The heart size is normal. The mediastinum is within normal limits. There is elevation of the right hemidiaphragm. The linear opacity at the right lung base is consistent with scar or atelectasis. The left lung is clear. There are no pleural effusions. There is no pneumothorax. The bony thorax appears intact. IMPRESSION: Right lung base scar or atelectasis. Reviewed, Interpreted and Dictated by Dillon Patel MD Transcribed by Thalia Cunningham Authenticated and [facility]
--- NOTE | 2024-03-18 11:17 | ED_ITS ---
Discharge Plan Disposition Patient Disposition: Xfer Short-Term Hosp Condition: Good Prescriptions Prescriptions: New ketorolac 10 mg tablet 10 mg PO Q8H PRN (Reason: pain) 3 Days Qty: 12 0RF No Action famotidine 20 MG tablet 20 mg PO DAILY amlodipine 5 mg tablet 5 mg PO DAILY lurasidone [Latuda] 80 mg tablet 80 mg PO DAILY ketorolac 10 mg tablet 10 mg PO Q8H PRN (Reason: knee pain and swelling) Qty: 15 0RF Referrals Follow up/Referrals: Moe Mir [Primary Care Provider] - See instructions Activity Restrictions/Add. Instructions Additional Instructions/Restrictions: Please proceed directly to [facility] emergency department. Clinical Impressions Clinical Impression: Pleural effusion on right, Post-operative complication Print Language Print Language: Mozambican Discharge ED Provider: Adriana Heredia General Adult HPI <Juan Dean MD - Last Filed: 03/18/24 15:50> General Chief complaint: Shortness of Breath/Dyspnea Stated complaint: incision possibly infected from [id number] Time Seen by Provider: 03/18/24 10:32 Mode of Arrival: Ambulatory Source of Information: Patient Limitations: No Limitations Description of Symptoms (Recalled from ER Triage Doc. by RN): PT REPORTS SURGERY ON 03/11/2024 FOR LUNG COLLAPSE AND DIAPHRAM PROCEDURE. REDNESS TO CHEST TUBE SITE. PT REPORTS FEVER, BODYACHES AND SHORTNESS OF BREATH History of Present Illness HPI narrative: Please note that above description of symptoms, in this electronic medical record under categorization of recalled from ER triage doctor by RN are reflective of an initial nursing assessment, however, is not reflective of my full history and physical exam that was personally taken and clarified. Consequentially, this preceding description of symptoms, which may include the patient's categorized chief complaint in the EMR, do not reflect my personal clinical impression, and the ultimate description of history of present illness and patient stated complaints should be deferred to this section of the note. Unless stated otherwise or congruent with this section of the note, additional signs, symptoms, or incongruence should be interpreted as inaccurate with my clinical impression. Related Data Home Medications ?Medication ?Instructions ?Recorded ?Confirmed famotidine 20 mg tablet 20 mg PO DAILY ABDOMINAL PAIN 10/24/21 10/07/22 amlodipine 5 mg tablet 5 mg PO DAILY Hypertension 11/28/21 10/07/22 lurasidone 80 mg tablet (Latuda) 80 mg PO DAILY mood 11/28/21 10/07/22 Previous Rx's ?Medication ?Instructions ?Recorded ketorolac 10 mg tablet 10 mg PO Q8H PRN knee pain and 10/07/22 swelling #15 tabs ketorolac 10 mg tablet 10 mg PO Q8H PRN pain 3 days #12 03/18/24 tabs Allergies Allergy/AdvReac Type Severity Reaction Status Date / Time Iodine and Iodide Containing Allergy Verified 11/28/21 17:41 Produc metronidazole (From Flagyl) Allergy Verified 07/23/21 19:01 PFSH <Juan Dean MD - Last Filed: 03/18/24 15:50> [facility] Disclaimer: The information contained in this section may have been updated after the patient was seen, as this information can be updated by other users. Medical History (Updated 03/18/24 @ 16:22 by Adriana Heredia DO) Hypertension Social History (Updated 11/28/21 @ 20:16 by Mary Hsu DO) Smoking Status: Never smoker alcohol intake: never current occupational status: employed Travel in the last 8 weeks: None Have you lived/traveled outside [place] in past 30 days?: No Contact w/someone who lives/traveled outside US past 30 days?: No Exposure to someone with infectious disease in past 14 days?: No Do you have a fever (greater than 100.4 F or 38 C)?: No Have you tested positive for COVID-19: No Exposed to someone with COVID-19 in past 14 days?: No Do you have a sore throat?: No Do you have a cough?: No Do you have any weakness?: No Do you have any diarrhea?: No Are you experiencing any unusual bleeding?: No Do you have any muscle aches/pain?: No Do you have any abdominal pain?: No Are you experiencing loss of taste or smell?: No Other Medical History Have you received the Flu Vaccine for this season: No Have you received the Pneumonia Vaccine: No <Juan Dean MD - Last Filed: 03/18/24 15:50> ROS Obtained: Yes All systems reviewed & no additional complaints except as documented Physical Exam <Juan Dean MD - Last Filed: 03/18/24 15:50> General General appearance: alert Head Head exam: atraumatic and normocephalic Eye Eye exam: Present normal appearance, PERRL and EOMI Neck Neck exam: Present normal inspection, full ROM and trachea midline Chest Chest inspection: Present tenderness (Around incision site with associated erythema. No evidence of redness, induration, etc. No purulence) Respiratory Respiratory exam: Present other (Decreased breath sounds right lower/lateral lung travis near incision site); Absent respiratory distress, wheezes, stridor, accessory muscle use or prolonged expiratory phase Cardiovascular Cardiovascular exam: Present regular rate, normal rhythm and other (Pulses equal symmetric in upper and lower extremities) Abdominal Exam Abdominal exam: Present soft; Absent distention, tenderness or pulsatile mass Extremities Exam Extremities exam: Absent edema Neurological Exam Neurological exam: Present alert, oriented X3 and CN II-XII intact; Absent motor sensory deficit Skin Skin exam: Present warm and dry; Absent diaphoresis or erythema Medical Decision Making <Juan Dean MD - Last Filed: 03/18/24 15:50> Medical Records Medical records reviewed: Yes I reviewed the patient's medical records. Screening: Per USPSTF and CDC recommendations, given the prevalence of disease in our region, it is our hospital?s policy to screen for HIV and viral Hepatitis for all patients aged 18 and over and those with ongoing risk factors. Js Inquiry Pt receiving controlled substance: No Js was queried for this patient: No Vital Signs: 03/18/24 10:28 03/18/24 10:39 03/18/24 10:45 Temperature 98.3 F Temperature Source Oral Pulse Rate 84 82 Pulse Rate [Radial] 83 Respiratory Rate 20 Blood Pressure Blood Pressure [Right Arm] 128/66 Blood Pressure Mean [Right Arm] 86 Blood Pressure Source [Right Arm] Automatic Cuff Blood Pressure Position [Right Arm] Sitting 02 Sat by Pulse Oximetry 95 96 95 Oxygen Delivery Method Room Air Room Air Room Air 03/18/24 14:06 03/18/24 14:15 Temperature Temperature Source Pulse Rate 76 69 Pulse Rate [Radial] Respiratory Rate Blood Pressure 128/76 128/76 Blood Pressure [Right Arm] Blood Pressure Mean [Right Arm] Blood Pressure Source [Right Arm] Blood Pressure Position [Right Arm] 02 Sat by Pulse Oximetry 96 95 Oxygen Delivery Method Room Air Lab Data Lab Results 03/18/24 10:54: HIV Ag/Ab Combo Qual Negative 03/18/24 10:55: WBC 10.4, RBC 4.72, Hgb 15.6, Hct 44.2, MCV 93.6, MCH 33.1 H, MCHC 35.3, RDW 12.8, Plt Count 319, MPV 9.6, Neut % (Auto) 67.6, Lymph % (Auto) 13.1, Shasta % (Auto) 14.7 H, Eos % (Auto) 3.3, Baso % (Auto) 0.4, Neut # (Auto) 7.1, Lymph # (Auto) 1.4, [place]asta # (Auto) 1.5 H, Eos # (Auto) 0.3, Baso # (Auto) 0.0, Sodium 136, Potassium 4.1, Chloride 107, Carbon Dioxide 22, Anion Gap 11.1, BUN 13, Creatinine 0.80, Estimated Creat Clear 174, Estimated GFR 103, Est GFR ( Amer) 124, Glucose 92, Calcium 9.0, Total Bilirubin 1.2, AST 44, ALT 60, Alkaline Phosphatase 46, Total Protein 6.1 L, Albumin 3.7, Globulin 2.4, Albumin/Globulin Ratio 1.5, Procalcitonin 0.079 03/18/24 11:26: Lactate 1.0 03/18/24 10:55 03/18/24 10:55 Orders (Tests/Meds): ED MEDICATIONS Discontinued Medications Generic Name Dose Route Start Last Admin Trade Name Freq PRN Reason Stop Dose Admin Diphenhydramine HCl 25 mg 03/18/24 12:35 03/18/24 12:41 Diphenhydramine 50mg/Ml Vial IV 03/18/24 12:36 25 mg ONCE ONE Administration Iopamidol 75 ml 03/18/24 13:36 03/18/24 13:37 Iopamidol-370 (76%);100ml Bottle IV 03/18/24 13:37 75 ml ONCE ONE Administration Ketorolac Tromethamine 15 mg 03/18/24 11:03 03/18/24 11:18 Ketorolac 30mg/Ml Vial IV 03/18/24 11:04 15 mg ONCE ONE Administration Methylprednisolone Sodium Succinate 125 mg 03/18/24 12:35 03/18/24 12:42 Methylprednisolone Sod Succ 125mg Vial IV 03/18/24 12:36 125 mg ONCE ONE Administration Sodium Chloride 10 ml 03/18/24 13:36 03/18/24 13:37 Sodium Chloride 0.9% 10ml Syr (Rad Only) IV 03/18/24 13:37 10 ml ONCE ONE Administration ORDERS Category Date Time Status CT chest w con Stat Cat Scan 03/18/24 11:44 Completed CXR 2 view (NOT portable) [XR chest 2V] Stat Exams 03/18/24 11:02 Completed POCUS Point of Care (ER Only) Stat Exams 03/18/24 11:02 Taken CBC w/Auto Diff [Complete Blood Count Auto Diff] Stat Lab 03/18/24 10:55 Completed CMP [Comprehensive Metabolic Panel] Stat Lab 03/18/24 10:55 Completed HIV Combo Stat Lab 03/18/24 10:54 Completed Hep C Ab with Reflex to RNA Stat Lab 03/18/24 10:54 Received Lactic Acid Stat Lab 03/18/24 11:26 Completed Procalcitonin Stat Lab 03/18/24 10:55 Completed Blood Culture Stat Micro 03/18/24 11:26 Received Medical Decision Narrative: 48-year-old male history of recent thoracostomy for diaphragmatic surgery presenting with concern for infection. Patient states that he had the surgery done last week and was doing well, now having pain near the site. States that it is red, does not know if it has gotten progressively more red or not given the location of it. Had a fever of more than 101 ?F, so came in for further evaluation concern for infection. No other symptoms. No purulence from the area. History was obtained via conversation with patient. On arrival, patient hemodynamically stable, alert, oriented x4, appropriate, GCS 15, moving all extremities spontaneously, pupils equal and reactive to light. Full physical exam performed and significant for well-appearing male no acute distress. He does have erythema around the incision site, but is clean, dry, intact without purulence. Not particularly tender on my exam, but states that when pushing hard enough, elicits tenderness. Lungs are clear on the left, but on the right near the incision site, decreased breath sounds in the inferior and lateral lung travis. Differential includes pneumonia, pleural effusion, empyema, parapneumonic effusion, cellulitis, abscess, among others. Patient placed on continuous cardiac monitoring and continuous pulse ox with initial blood pressure 128/66, heart rate 83, saturation 95% on room air. Independent interpretation of EKG shows sinus rhythm 82 bpm with no acute ischemic change. GA 168, QRS 89, QTc 4 2. Normal axis. Patient was given Toradol for symptomatic management and correction of underlying abnormalities. Workup independently interpreted and significant for nonactionable hematologic workup with negative white count. Chest x-ray with what appears to be effusion versus consolidation in the right lower lobe. CT scan independently interpreted and patient has consolidation process in the right lower lobe as well as parapneumonic effusion measuring anywhere from 16 to 20 Hounsfield units. See radiology read for full review of final results. On reevaluation, patient feeling better after Toradol, requesting to leave actually. Results of imaging were relayed to patient and he is agreeable to stay until thoracic surgery is being consulted with. Thoracic surgery was consulted around 3 PM and still awaiting callback at time of handoff to oncoming physician. Objects Conservator disclaimer Much of this encounter note is an electronic system technologist spoken language to printed text. Electronic system technologist of the spoken language may permit errors. Although I have reviewed the note, some errors may still exist. <Adriana Heredia, DO - Last Filed: 03/18/24 16:23> Vital Signs: 03/18/24 10:28 03/18/24 10:39 03/18/24 10:45 Temperature 98.3 F Temperature Source Oral Pulse Rate 84 82 Pulse Rate [Radial] 83 Respiratory Rate 20 Blood Pressure Blood Pressure [Right Arm] 128/66 Blood Pressure Mean [Right Arm] 86 Blood Pressure Source [Right Arm] Automatic Cuff Blood Pressure Position [Right Arm] Sitting 02 Sat by Pulse Oximetry 95 96 95 Oxygen Delivery Method Room Air Room Air Room Air 03/18/24 14:06 03/18/24 14:15 Temperature Temperature Source Pulse Rate 76 69 Pulse Rate [Radial] Respiratory Rate Blood Pressure 128/76 128/76 Blood Pressure [Right Arm] Blood Pressure Mean [Right Arm] Blood Pressure Source [Right Arm] Blood Pressure Position [Right Arm] 02 Sat by Pulse Oximetry 96 95 Oxygen Delivery Method Room Air Lab Data Lab Results 03/18/24 10:54: HIV Ag/Ab Combo Qual Negative 03/18/24 10:55: WBC 10.4, RBC 4.72, Hgb 15.6, Hct 44.2, MCV 93.6, MCH 33.1 H, MCHC 35.3, RDW 12.8, Plt Count 319, MPV 9.6, Neut % (Auto) 67.6, Lymph % (Auto) 13.1, Shasta % (Auto) 14.7 H, Eos % (Auto) 3.3, Baso % (Auto) 0.4, Neut # (Auto) 7.1, Lymph # (Auto) 1.4, [place]asta # (Auto) 1.5 H, Eos # (Auto) 0.3, Baso # (Auto) 0.0, Sodium 136, Potassium 4.1, Chloride 107, Carbon Dioxide 22, Anion Gap 11.1, BUN 13, Creatinine 0.80, Estimated Creat Clear 174, Estimated GFR 103, Est GFR ( Amer) 124, Glucose 92, Calcium 9.0, Total Bilirubin 1.2, AST 44, ALT 60, Alkaline Phosphatase 46, Total Protein 6.1 L, Albumin 3.7, Globulin 2.4, Albumin/Globulin Ratio 1.5, Procalcitonin 0.079 03/18/24 11:26: Lactate 1.0 Orders (Tests/Meds): ED MEDICATIONS Discontinued Medications Generic Name Dose Route Start Last Admin Trade Name Freq PRN Reason Stop Dose Admin Diphenhydramine HCl 25 mg 03/18/24 12:35 03/18/24 12:41 Diphenhydramine 50mg/Ml Vial IV 03/18/24 12:36 25 mg ONCE ONE Administration Iopamidol 75 ml 03/18/24 13:36 03/18/24 13:37 Iopamidol-370 (76%);100ml Bottle IV 03/18/24 13:37 75 ml ONCE ONE Administration Ketorolac Tromethamine 15 mg 03/18/24 11:03 03/18/24 11:18 Ketorolac 30mg/Ml Vial IV 03/18/24 11:04 15 mg ONCE ONE Administration Methylprednisolone Sodium Succinate 125 mg 03/18/24 12:35 03/18/24 12:42 Methylprednisolone Sod Succ 125mg Vial IV 03/18/24 12:36 125 mg ONCE ONE Administration Sodium Chloride 10 ml 03/18/24 13:36 03/18/24 13:37 Sodium Chloride 0.9% 10ml Syr (Rad Only) IV 03/18/24 13:37 10 ml ONCE ONE Administration ORDERS Category Date Time Status CT chest w con Stat Cat Scan 03/18/24 11:44 Completed CXR 2 view (NOT portable) [XR chest 2V] Stat Exams 03/18/24 11:02 Completed POCUS Point of Care (ER Only) Stat Exams 03/18/24 11:02 Taken CBC w/Auto Diff [Complete Blood Count Auto Diff] Stat Lab 03/18/24 10:55 Completed CMP [Comprehensive Metabolic Panel] Stat Lab 03/18/24 10:55 Completed HIV Combo Stat Lab 03/18/24 10:54 Completed Hep C Ab with Reflex to RNA Stat Lab 03/18/24 10:54 Received Lactic Acid Stat Lab 03/18/24 11:26 Completed Procalcitonin Stat Lab 03/18/24 10:55 Completed Blood Culture Stat Micro 03/18/24 11:26 Received Medical Decision Narrative: 48-year-old male history of recent thoracostomy for diaphragmatic surgery presenting with concern for infection. Patient states that he had the surgery done last week and was doing well, now having pain near the site. States that it is red, does not know if it has gotten progressively more red or not given the location of it. Had a fever of more than 101 ?F, so came in for further evaluation concern for infection. No other symptoms. No purulence from the area. History was obtained via conversation with patient. On arrival, patient hemodynamically stable, alert, oriented x4, appropriate, GCS 15, moving all extremities spontaneously, pupils equal and reactive to light. Full physical exam performed and significant for well-appearing male no acute distress. He does have erythema around the incision site, but is clean, dry, intact without purulence. Not particularly tender on my exam, but states that when pushing hard enough, elicits tenderness. Lungs are clear on the left, but on the right near the incision site, decreased breath sounds in the inferior and lateral lung travis. Differential includes pneumonia, pleural effusion, empyema, parapneumonic effusion, cellulitis, abscess, among others. Patient placed on continuous cardiac monitoring and continuous pulse ox with initial blood pressure 128/66, heart rate 83, saturation 95% on room air. Independent interpretation of EKG shows sinus rhythm 82 bpm with no acute ischemic change. GA 168, QRS 89, QTc 4 2. Normal axis. Patient was given Toradol for symptomatic management and correction of underlying abnormalities. Workup independently interpreted and significant for nonactionable hematologic workup with negative white count. Chest x-ray with what appears to be effusion versus consolidation in the right lower lobe. CT scan independently interpreted and patient has consolidation process in the right lower lobe as well as parapneumonic effusion measuring anywhere from 16 to 20 Hounsfield units. See radiology read for full review of final results. On reevaluation, patient feeling better after Toradol, requesting to leave actually. Results of imaging were relayed to patient and he is agreeable to stay until thoracic surgery is being consulted with. Thoracic surgery was consulted around 3 PM and still awaiting callback at time of handoff to oncoming physician. Objects Conservator disclaimer Much of this encounter note is an electronic system technologist spoken language to printed text. Electronic system technologist of the spoken language may permit errors. Although I have reviewed the note, some errors may still exist. DO Yan: I assumed care of the patient at 1500 at time of departure of the prior physician. Patient is in no acute distress on my assessment. I had an interactive discussion with Dr. Castro with thoracic surgery at [facility] who advised the patient to be transferred to [facility] emergency department for further evaluation. I discussed this with the patient and offered EMS transport, but he elects to go POV. Patient was provided with this, paperwork, and left to go to [facility] in stable condition. Critical Care <Juan Dean MD - Last Filed: 03/18/24 15:50> Critical Care Time Critical Care Time: No
[2024-03-18 11:18] LABS: Alanine Aminotransferase 60 U/L (12-78); Albumin Level 3.7 g/dl (3.5-5.0); Albumin/Globulin Ratio 1.5 (1.1-1.8); Alkaline Phosphatase 46 U/L (38-126); Aspartate Amino Transferase 44 U/L (17-59); Bilirubin,Total 1.2 mg/dl (0.2-1.3); Blood Urea Nitrogen 13 mg/dl (9-20); Carbon Dioxide 22 mmol/L (22.0-30.0); Chloride 107 mmol/L (98-107); Creatinine Clearance Estimated 174 mL/min (50-200); Estimated Glomerular Filt Rate 103 ml/min (>60); GFR (African American) 124 ML/MIN (>60); Globulin 2.4 g/dL (1.3-3.2); Glucose 92 mg/dl (74-100); Hematocrit 44.2 % (42.0-52.0); Hemoglobin 15.6 g/dL (14.1-18.0); Lymphocytes % 13.1 % (10-50); Mean Corpuscular HGB Conc 35.3 g/dL (31.8-35.4); Mean Corpuscular Hemoglobin 33.1 pg (27.0-31.2); Mean Corpuscular Volume 93.6 fl (80-94); Mean Platelet Volume 9.6 fl (7.4-10.4); Monocytes % 14.7 % (1.7-9.3); Neutrophils % 67.6 % (37.0-80.0); Platelet Count 319 K/mm3 (142-424); Red Blood Count 4.72 M/mm3 (4.60-6.20); Red Cell Distribution Width 12.8 % (11.5-17.5); Sodium 136 mmol/L (136-145); Total Protein,Serum 6.1 g/dl (6.3-8.2); White Blood Count 10.4 K/mm3 (4.8-10.8)
[2024-03-18] MEDS: KETOROLAC 30MG/ML VIAL 15 MG IV (11:18)
[2024-03-18 11:19] LABS: Basophils % 0.4 % (0.1-2.0); Eosinophils # 0.3 K/mm3 (0.0-0.4); Eosinophils % 3.3 % (0.1-12.0); Lymphocytes # 1.4 K/mm3 (0.7-4.5); Monocytes # 1.5 K/mm3 (0.1-1.0); Neutrophils # 7.1 K/mm3 (1.8-7.8)
--- NOTE | 2024-03-18 11:31 | PC.NURSE ---
PT RETURNED FROM RADIOLOGY
[2024-03-18 11:35] LABS: Procalcitonin 0.079 ng/mL (0.0-2.0)
--- NOTE | 2024-03-18 11:44 | CT_ITS ---
FINAL REPORT TECHNIQUE: Routine axial images were obtained from the lung apices to below the diaphragm following IV contrast administration. Individualized dose reduction techniques using automated exposure control or adjustment of the mA and/or kV according to the patient size were employed. CLINICAL HISTORY: recent R thoracostomy, rule out empyema COMPARISON: 10/27/2021 FINDINGS: The mediastinal vasculature has adequate opacification. There is a moderate right pleural effusion. Dense right lower lobe consolidation is noted. There is consolidation in the right middle lobe as well. There appear to be high density foci in the inferior pleural space on the right which may represent calcifications measuring up to 12 mm in greatest dimension, new from the prior study. Fluid density has a mean attenuation of 12 Hounsfield units. No adenopathy or mass lesion is present. IMPRESSION: New moderate right pleural effusion, right lower lobe consolidation, and densities in the pleural space favored to represent calcifications. The fluid density does not measure simple fluid. Diagnostic thoracentesis would be necessary to fully characterize. Reviewed, Interpreted and Dictated by Dillon Patel MD Transcribed by Thalia Cunningham Authenticated and [facility]
[2024-03-18] MEDS: diphenhydrAMINE 50MG/ML VIAL 25 MG IV (12:41)
[2024-03-18] MEDS: METHYLPREDNISOLONE SOD SUCC 125MG VIAL 125 MG IV (12:42)
[2024-03-18 12:46] LABS: Anion Gap 11.1 mEq/L (5-15); Potassium 4.1 mmoL/L (3.5-5.1)
--- NOTE | 2024-03-18 12:55 | HMH.ITSTN ---
ER to call when pt is pre-medicated & ready for scan
--- NOTE | 2024-03-18 13:30 | PC.NURSE ---
OK'D PER DR GUTHRIE TO PROCEED WITH CT SCANS
--- NOTE | 2024-03-18 13:36 | PC.NURSE ---
PT TO CT
[2024-03-18] MEDS: IOPAMIDOL-370 (76%);100ML BOTTLE 75 ML IV (13:37)
[2024-03-18] MEDS: SODIUM CHLORIDE 0.9% 10ML SYR (RAD ONLY) 10 ML IV (13:37)
[2024-03-18 14:06] VITALS: BP 128/76; PULSE 76; O2SAT 96
[2024-03-18 14:15] VITALS: BP 128/76; PULSE 69; O2SAT 95
--- NOTE | 2024-03-18 14:30 | PC.NURSE ---
rounded on pt no needs at this time. call light in reach
[2024-03-18 15:15] LABS: HIV Combo NEGATIVE (Negative)
--- NOTE | 2024-03-18 15:17 | PC.NURSE ---
pt asked for [facility]. provided wants pt NPO
--- NOTE | 2024-03-18 15:24 | PC.NURSE ---
Called [facility] per Dr Dean to speak with them about this pt being transferred. [facility] advised that they would call us back
--- NOTE | 2024-03-18 15:50 | PC.NURSE ---
Called [facility] to check on the status of there callback and we were next in line for a callback
--- NOTE | 2024-03-18 16:15 | PC.NURSE ---
called back and is speaking with Dr Heredia now.
--- NOTE | 2024-03-18 16:19 | PC.NURSE ---
DR SANCHEZ AT BEDSIDE TO UPDATE PT
[2024-03-18 16:36] VITALS: BP 145/77; PULSE 79; RESP 18; TEMP 36.8; O2SAT 96
[2024-03-19 07:08] LABS: HCV Ab Non Reactive (Non Reactive)
== END 2024-03-18 16:36 | disposition short-term general hospital (02) ==
PROVIDERS: Emergency Medicine; Emergency Provider Emergency Medicine; PCP Family Medicine
DX: J90 Pleural effusion, not elsewhere classified (principal); T81.9XXA Unspecified complication of procedure, initial encounter; R06.02 Shortness of breath; R50.9 Fever, unspecified; M79.10 Myalgia, unspecified site
CPT/HCPCS: 71046; 71260; 80053; 83605; 84145; 85025; 86803; 87040; 87389; 93005; 96374; 96375; 99285; J1200; J1885; J2919; Q9967

== ENCOUNTER 2024-03-18 20:52 | Emergency (ER) | payer BC, SELFPAY ==
[2024-03-18 21:03] VITALS: BP 155/91; PULSE 97; RESP 20; TEMP 36.5; O2SAT 95; BMI 38.7
--- NOTE | 2024-03-18 21:12 | PC.NURSE ---
pulmonology paged for
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
[2024-03-18 21:29] LABS: Albumin Level 4.1 g/dl (3.5-5.0); Chloride 103 mmol/L (98-107); Potassium 4.6 mmoL/L (3.5-5.1); Sodium 134 mmol/L (136-145)
[2024-03-18 21:30] LABS: Basophils % 0.2 % (0.1-2.0); Eosinophils % 0.1 % (0.1-12.0); Hematocrit 43.8 % (42.0-52.0); Hemoglobin 15.6 g/dL (14.1-18.0); Lymphocytes # 0.6 K/mm3 (0.7-4.5); Lymphocytes % 4.7 % (10-50); Mean Corpuscular HGB Conc 35.6 g/dL (31.8-35.4); Mean Corpuscular Hemoglobin 33.5 pg (27.0-31.2); Mean Corpuscular Volume 94.2 fl (80-94); Mean Platelet Volume 9.5 fl (7.4-10.4); Monocytes # 0.3 K/mm3 (0.1-1.0); Monocytes % 2.4 % (1.7-9.3); Neutrophils # 10.7 K/mm3 (1.8-7.8); Neutrophils % 91.7 % (37.0-80.0); Platelet Count 348 K/mm3 (142-424); Red Blood Count 4.65 M/mm3 (4.60-6.20); Red Cell Distribution Width 12.7 % (11.5-17.5); White Blood Count 11.7 K/mm3 (4.8-10.8)
[2024-03-18 21:31] VITALS: BP 159/89; PULSE 91; O2SAT 96
[2024-03-18 21:32] LABS: Alanine Aminotransferase 73 U/L (12-78); Albumin/Globulin Ratio 1.5 (1.1-1.8); Alkaline Phosphatase 36 U/L (38-126); Anion Gap 15.6 mEq/L (5-15); Aspartate Amino Transferase 57 U/L (17-59); Blood Urea Nitrogen 14 mg/dl (9-20); Carbon Dioxide 20 mmol/L (22.0-30.0); Creatinine Clearance Estimated 153 mL/min (50-200); Estimated Glomerular Filt Rate 90 ml/min (>60); GFR (African American) 109 ML/MIN (>60); Globulin 2.7 g/dL (1.3-3.2); MANUAL DIFFERENTIAL MANUAL DIFFERENTIAL (MANUAL DIFF); Total Protein,Serum 6.8 g/dl (6.3-8.2)
[2024-03-18 21:33] LABS: Calcium 9.5 mg/dl (8.4-10.2); Glucose 230 mg/dl (74-100)
--- NOTE | 2024-03-18 21:48 | PC.NURSE ---
[facility] 's to call back
[2024-03-18 21:50] LABS: Lymphocytes % 7 % (10-50); Neutrophils % 93 % (42-76); Total Cells Counted 100
[2024-03-18 21:51] LABS: Platelet Estimate Normal; Stomatocytes 1+
[2024-03-18 22:01] VITALS: BP 157/70; PULSE 95; O2SAT 98
[2024-03-18] MEDS: VANCOMYCIN CONSULT REQUEST 1 EACH NOTAPPLIC (22:27)
--- NOTE | 2024-03-18 22:28 | PC.NURSE ---
Verified Arlene w/ [facility]
[2024-03-18] MEDS: PIPERACILLIN/TAZO 4.5 GM in 0.9 % SODIUM CHLORIDE 100 ML IV (22:30)
[2024-03-18] MEDS: VANCOMYCIN HCL 2,250 MG in 0.9 % SODIUM CHLORIDE 250 ML 125 MG IV (23:50)
--- NOTE | 2024-03-19 00:32 | PC.NURSE ---
Report called to Mirella LOPEZ at ED
[2024-03-19 01:34] VITALS: BP 148/68; PULSE 93; RESP 20; TEMP 36.6; O2SAT 96
== END 2024-03-19 01:35 | disposition short-term general hospital (02) ==
PROVIDERS: Emergency Provider Emergency Medicine; PCP Family Medicine
DX: J90 Pleural effusion, not elsewhere classified (principal); R06.00 Dyspnea, unspecified; R06.02 Shortness of breath
CPT/HCPCS: 80053; 85007; 85025; 85027; 87040; 96365; 96366; 96367; 99285; J2543; J3370